=== PATIENT | female | born 1965 | race Caucasian/White ===

== ENCOUNTER 2018-04-06 20:16 | Emergency (ER) | payer OTHER ==
[2018-04-06] MEDS: morphine 4 MG/ML VIAL IM (21:12)
[2018-04-06] MEDS: ONDANSETRON (ODT) 4 MG TAB ODT (21:12)
[2018-04-06] MEDS: IBUPROFEN 600 MG TAB PO (21:12)
== END 2018-04-06 23:28 | disposition home or self-care (01) ==
LOC: FTE 20:16
DX: S62.102A Fracture of unspecified carpal bone, left wrist, initial encounter for closed fracture (principal); W10.8XXA Fall (on) (from) other stairs and steps, initial encounter; Y92.9 Unspecified place or not applicable
CPT/HCPCS: 29125; 73060; 73080-LT; 73110-LT; 96372; 99284-25